=== PATIENT | female | born 1990 | race Caucasian/White ===

== ENCOUNTER 2018-06-06 02:41 | Inpatient (IN) ==
[~2018-06-06 02:41] MED LIST: Famotidine 20 MG/2 ML VIAL IVP PRN; Lidocaine 1% 20 ML MDV INFILT PRN; Metoclopramide 10 MG/2 ML VIAL IVP PRN; Naloxone 0.4 MG/ML INJ IVP PRN; Ondansetron 4 MG/2 ML VIAL IVP PRN; Oxytocin 20 units/ LR 1000 mL 20 UNIT/1,000 ML BAG IVC ONE; Ringers Solution, Lactated 1,000 ML ONE
[2018-06-06] MEDS ORDERED: Ringers Solution, Lactated 1,000 ML IVC SCH (02:45)
--- NOTE | 2018-06-06 02:52 | OB/GYN Procedure Note ---
Delivery - Delivery Date: 06/06/18 Provider: Jovanny Pino Intrapartum events: meconium Delivery induction: none Delivery monitor: external FHT, external uterine Anesthesia: local Quantitated Blood Loss: 300 - (s) Infant A Infant Delivery Date: 06/06/18 Infant Delivery Time: 02:21 Presentation: vertex Position: OA Route of delivery: Gender: Female Viability: Viable Pounds: 6 Ounces: 5 Weight Gram: 2.86 kg at 1 minute: 8 at 5 mins: 8 Shoulder Dystocia: not encountered Specimens collected: cord blood Cord: nuchal cord (x2), delivered through nuchal - Repair Episiotomy: none Laceration Description: Periurethral (right), Perineal - 1st Degree - Complications Delivery complications: none Delivery comments: Patient is a 27-year-old 1 para 0 approximately 36-2/7 weeks who was transferred from [facility] secondary to active labor. Patient presented to the emergency room by EMS with complaint of abdominal pains patient was 4 cm on admission they attempted to [facility] the patient the patient was so [id number] [facility] would not place her on the helicopter. In the process of weaning patient progressed to complete the ER physician artificially ruptured with thick meconium noted. They attempted to deliver her the patient refused to push. Patient's contractions spaced out and they felt it was unsafe for her to stay in the institution they did call was requesting transfer. We did inform them that we cannot exceptive since she is completely it would be up to the decision responsibility if they felt she may be transferred for an ambulance. He felt that she would not deliver and went ahead and transferred upon arrival patient was complete +2 requesting section she did not want to be in pain after long discussion with patient she finally decided to push and after approximately 10 minutes of pushing patient delivered a viable female infant in occiput anterior sensation and 0221. There was a nuchal cord 2 loose that was delivered through thick meconium was noted. The infant was bulb suctioned on the abdomen where the cord was clamped and cut and was handed off to waiting pediatric team. Cord blood was collected placenta was then delivered spontaneously with a three-vessel cord, OB Dr Pino, Anesthesia local, estimated blood loss 300 mL. Patient had a right periurethral laceration and a first-degree perineal laceration this was repaired with 3-0 Monocryl in a running locking stitch. Cervix and vagina was visualized intact uterus was explored there was no retained membranes or placental tissue noted. All needles and sponge counts were correct 3 she will be observed 2 hours before being taken floor - Disposition Mom disposition: stable in LDR [place] disposition: stable in LDR
--- NOTE | 2018-06-06 02:56 | OB/GYN History & Physical ---
Date of Encounter: 06/06/18 Time of Encounter: 02:48 Assessment and Plan (1) 36 weeks gestation of Current visit: Yes Status: Acute Admit for labor POC per consult with Dr Pino (2) Active labor Current visit: Yes Status: Acute Qualifiers: Fetus number: single or unspecified fetus Qualified Code(s): O60.10X0 - labor with delivery, unspecified trimester, not applicable or unspecified History of Present Illness Chief complaint: Active labor HPI: Ms. Finney is a 27 year old at 36 weeks and 2 days gestation who was transferred from [facility] secondary to active labor. Patient presented to the emergency room by EMS with complaint of abdominal pains patient was 4 cm on admission they attempted to [facility] the patient the patient was so [id number] [facility] would not place her on the helicopter. In the process of weaning patient progressed to complete the ER physician artificially ruptured with thick meconium noted. They attempted to deliver her the patient refused to push. Patient's contractions spaced out and they felt it was unsafe for her to stay in the institution they did call was requesting transfer. We did inform them that we cannot exceptive since she is completely it would be up to the decision responsibility if they felt she may be transferred for an ambulance. He felt that she would not deliver and went ahead and transferred upon arrival patient was complete +2 requesting section she did not want to be in pain after long discussion with patient she finally decided to push. She was seen for one exam today in the office with Mami Grijalva CNM. Her ultrasound yesterday showed a gestation of 36 w and 1 day with an EDC of 07/02/2018. She states she has a history of methamphetamine use and admitted to use of methamphetamine approximately 12 hours prior to going to [facility]. Labs: GBS unknown Hep B NR RPR NR HIV NR Rubella Immune Varicella Nonimmune Blood type A+ Past Med Surg Social Fam HX - Past Medical History Medical history: thyroid disease Additional medical history: taking vivtrol Psychiatric history: no psych history - Social History Smoking Status: Current every day smoker Smokeless Tobacco Status: No Alcohol use: none, heavy Drug use: opiates Obstetrical History - Pregnancies : 1 Para: 0 Term: 0 : 0 Ab's: 0 Livin Medications and Allergies Cephalexin [Keflex] 500 mg PO QID #28 capsule 02/21/17 [Rx] Ibuprofen [Motrin] 600 mg PO Q8HR PRN #20 tab 02/21/17 [Rx] Phenazopyridine HCl 200 mg PO TID #6 tablet 02/21/17 [Rx] Ondansetron ODT [Zofran ODT] 4 mg SL Q4HR #10 tab.rapdis 05/11/17 [Rx] Sulfamethoxazole/Trimeth DS [Bactrim DS] 1 each PO BID #6 tablet 05/14/17 [Rx] Allergy/AdvReac Type Severity Reaction Status Date / Time No Known Allergies Allergy Verified 05/11/17 06:06 Review of System OB All systems PM: reviewed and no additional remarkable complaints except as stated Exam - Constitutional Constitutional: well developed, well nourished, average body habitus, severe distress - HEENT HEENT: Normocephaly, Mucus Membranes Moist - Abdomen Abdomen: Present: gravid, non tender - Extremities Extremities exam: normal capillary refill, normal inspection, radial pulses palpable and symmetrical - Vulva Vulva: bilateral: normal - Vagina Vagina: Present: normal moisture - Cervix Dilation: 10 Effacement: 100 Station: +2 - Uterus Uterus exam: Present: normal size, normal contour - Comments Comments: FHTs 130's cat 1 tracing Contractions every 3-4 minutes Results All other labs normal. - VTE Reasons for not Prescribing Prophylaxis: Treatment not Indicated - Low risk for VTE
[2018-06-06] MEDS ORDERED: Oxytocin 20 units/ LR 1000 mL 20 UNIT/1,000 ML BAG IVC ONE ×2 (03:55→05:11)
[2018-06-06 04:04] LABS: Amphetamine Screen,Urine Positive ng/mL (Cutoff=1000); Barbiturate Screen,Urine Negative ng/mL (Cutoff=200); Benzodiazepines Screen,Urine Negative ng/mL (Cutoff=200); Cannabinoid Screen,Urine Negative ng/mL (Cutoff = 50); Cocaine Screen,Urine Negative ng/mL (Cutoff= 300); Opiate Screen,Urine Positive ng/mL (Cutoff=300); Phencyclidine Screen,Urine Negative ng/mL (Cutoff=25)
[2018-06-06 04:14] LABS: Basophils % 0.2 %; Hematocrit 26.1 % (35.3-44.9); Immature Granulocytes % 0.4 % (0-4); Lymphocytes # 1.8 K/mcL (0.6-4.6); Lymphocytes % 8.4 %; Mean Corpuscular Hemoglobin 27.1 pg (28.0-33.3); Mean Corpuscular Volume 87.3 fL (83.0-100.0); Mean Platelet Volume 11.7 fL (9.4-12.4); Monocytes # 1.2 K/mcL (0.0-1.3); Monocytes % 5.5 %; Neutrophils # 18.3 K/mcL (1.6-8.9); Platelet Count 361 K/mcL (140-400); Red Blood Count 2.99 M/mcL (3.82-4.97); Red Cell Distribution Width 14.3 % (11.5-14.5); Segmented Neutrophils % 85.5 %
[2018-06-06 04:16] LABS: Hemoglobin 8.1 g/dL (11.5-15.4)
[2018-06-06] MEDS ORDERED: Measles/Mumps/Rubella Vacc 0.5 ML VIAL SQ PRN (05:11)
[2018-06-06] MEDS ORDERED: Oxytocin 20 units/ LR 1000 mL 20 UNIT/1,000 ML BAG IVC SCH (05:11)
[2018-06-06] MEDS ORDERED: Benzocaine/Menthol 56 GM AEROSOL SPRAY TP PRN (05:11)
[2018-06-06] MEDS ORDERED: Acetaminophen 325 MG TABLET PO PRN (05:11)
[2018-06-06] MEDS ORDERED: Ibuprofen 600 MG TABLET PO PRN (05:11)
[2018-06-06] MEDS: Prenatal Vit/FA 1 EACH TABLET PO SCH (09:01)
[2018-06-06] MEDS ORDERED: Nicotine 21 MG PATCH.TD24 TD SCH (09:30)
[2018-06-06 16:29] LABS: Basophils % 0.2 %; Eosinophils # 0.1 K/mcL (0.0-0.6); Eosinophils % 0.4 %; Immature Granulocytes % 0.6 % (0-4); Lymphocytes # 4.3 K/mcL (0.6-4.6); Mean Corpuscular HGB Conc 33.3 g/dL (31.6-35.5); Mean Corpuscular Hemoglobin 28.2 pg (28.0-33.3); Mean Corpuscular Volume 84.5 fL (83.0-100.0); Mean Platelet Volume 11.5 fL (9.4-12.4); Monocytes % 5.8 %; Platelet Count 429 K/mcL (140-400); Red Blood Count 2.84 M/mcL (3.82-4.97); Red Cell Distribution Width 14.4 % (11.5-14.5)
[2018-06-07] MEDS: Prenatal Vit/FA 1 EACH TABLET PO SCH (07:52)
[2018-06-07 07:53] VITALS: BP 136/83
--- NOTE | 2018-06-07 08:23 | Discharge Summary ---
Date of Encounter: 06/07/18 Time of Encounter: 08:21 - Discharge Diagnosis (1) Status post vaginal delivery Priority: Primary Status: Acute Comments: Pt meeting milestones. She desires discharge home today. (2) Polysubstance abuse Priority: Secondary Status: Acute Comments: Pt has seen SW. Referral to CPS complete. (3) anemia Priority: Secondary Status: Acute Comments: Continue iron BID. Pt denies s/sx anemia. - Discharge Medications Prescriptions: Ibuprofen [Motrin] 600 mg PO Q6HR PRN #30 tablet PRN Reason: Cramping Docusate [Colace] 100 mg PO BID #60 capsule Ferrous Sulfate 325 mg PO BIDWM #60 tablet Home Medications: Benzocaine/Menthol [place] [Dermoplast [place]] 1 appl TP QID PRN aerosol 06/07/18 [Rx] Docusate [Colace] 100 mg PO BID #60 capsule 06/07/18 [Rx] Ferrous Sulfate 325 mg PO BIDWM #60 tablet 06/07/18 [Rx] Ibuprofen [Motrin] 600 mg PO Q6HR PRN #30 tablet 06/07/18 [Rx] Vit/FA 1 each PO DAILY tablet 06/07/18 [Rx] Allergies/Adverse Reactions: Allergy/AdvReac Type Severity Reaction Status Date / Time No Known Allergies Allergy Verified 05/11/17 06:06 Data Procedures and tests throughout hospitalization: Laboratory Tests 06/06/18 06/06/18 06/06/18 01:58 03:45 03:45 WBC 21.4 H D RBC 2.99 L Hgb 8.1 L D Hct 26.1 L MCV 87.3 MCH 27.1 L MCHC 31.0 L RDW 14.3 Plt Count 361 MPV 11.7 Immature Gran % 0.4 Seg Neutrophils % 85.5 Lymphocytes % 8.4 Monocytes % 5.5 Eosinophils % 0.0 Basophils % 0.2 Neutrophils # 18.3 H Lymphocytes # 1.8 Monocytes # 1.2 Eosinophils # 0.0 Basophils # 0.0 Urine Opiates Screen Positive H Ur Barbiturates Screen Negative Ur Phencyclidine Scrn Negative Ur Amphetamines Screen Positive H U Benzodiazepines Scrn Negative Urine Cocaine Screen Negative U Marijuana (THC) Screen Negative Ur Drug Screen Interp See Below Hep Bs Antigen Nonreactive 06/06/18 16:06 WBC 16.5 H RBC 2.84 L Hgb 8.0 L Hct 24.0 L MCV 84.5 MCH 28.2 MCHC 33.3 RDW 14.4 Plt Count 429 H MPV 11.5 Immature Gran % 0.6 Seg Neutrophils % 67.0 Lymphocytes % 26.0 Monocytes % 5.8 Eosinophils % 0.4 Basophils % 0.2 Neutrophils # 11.0 H Lymphocytes # 4.3 Monocytes # 1.0 Eosinophils # 0.1 Basophils # 0.0 Urine Opiates Screen Ur Barbiturates Screen Ur Phencyclidine Scrn Ur Amphetamines Screen U Benzodiazepines Scrn Urine Cocaine Screen U Marijuana (THC) Screen Ur Drug Screen Interp Hep Bs Antigen Labs on day of discharge: Labs from last 24 hours 06/06/18 16:06 WBC 16.5 H RBC 2.84 L Hgb 8.0 L Hct 24.0 L MCV 84.5 MCH 28.2 MCHC 33.3 RDW 14.4 Plt Count 429 H MPV 11.5 Immature Gran % 0.6 Seg Neutrophils % 67.0 Lymphocytes % 26.0 Monocytes % 5.8 Eosinophils % 0.4 Basophils % 0.2 Neutrophils # 11.0 H Lymphocytes # 4.3 Monocytes # 1.0 Eosinophils # 0.1 Basophils # 0.0 - Impressions ITS Impressions Elbow X-Ray 06/06/18 16:36 IMPRESSION: No acute osseous abnormality of the left elbow. D/ / Kirk Ye MD / Kirk Ye MD Interpreting Provider: Kirk Ye MD Date of admission: 06/06/18 02:41 Primary care physician: PCP NONE Consults: 06/06/18 02:42 Consult to [facility] ([facility]) [CONS] Routine Reason For Exam: Reason for SW Consult: Late care - admission to meth use today prior to onset of labor 06/06/18 05:11 Consult to [facility] [employer] [CONS] Routine Comment: Vaginal delivery, consult needed Discharging clinician: Camille Madsen Anticipated date of discharge: 06/07/18 - Patient Status Disposition: Home, Self-Care Condition: Good Functional capacity at discharge: independent ambulation Overall status at discharge: patient is progressing back to baseline - Discharge Instructions Follow Up With: NONE,PCP [Primary Care Provider] - Svitlana Oconnell CNM [Advanced Practice Nurse] - - Diet and Activity Activity: increase activity as tolerated Diet: regular diet Hospital Course Reason for admission: active labor Delivery: Episiotomy: none Laceration: 1st degree, other (periurethral) Other procedures: none complications: none Discharge diagnosis: IUP at term delivered [place] baby: female Hospital course: - Delivery Date: 06/06/18 Provider: Jovanny Pino Intrapartum events: meconium Delivery induction: none Delivery monitor: external FHT, external uterine Anesthesia: local Quantitated Blood Loss: 300 - Infant (s) Infant A Delivery Date: 06/06/18 Delivery Time: 02:21 Presentation: vertex Position: OA Route of delivery: Gender: Female Viability: Viable Pounds: 6 Ounces: 5 Weight Gram: 2.86 kg at 1 minute: 8 at 5 mins: 8 Shoulder Dystocia: not encountered Specimens collected: cord blood Cord: nuchal cord (x2), delivered through nuchal - Repair Episiotomy: none Laceration Description: Periurethral (right), Perineal - 1st Degree - Complications Delivery complications: none - Disposition Mom disposition: home PPD#1 [place] disposition: in nursery for SHAD observation Time spent discussing smoking cessation with patient: 3 to 10 minutes Time Attestation: Total time spent providing and/or coordinating discharge services: Time Spent: Less than 30 minutes Exam - Constitutional Vitals: Temp Pulse Resp BP Pulse Ox 99.0 F 97 16 136/83 98 06/07/18 07:15 06/07/18 07:15 06/07/18 07:15 06/07/18 07:15 06/06/18 20:05 General appearance IM: A&O X 3 - Respiratory Respiratory exam: Present: CTAB - Cardiovascular Cardiovascular exam IM: Present: RRR - GI/Abdominal GI/Abdominal exam IM: soft - External exam: normal external exam Uterine Tone: Firm Uterus Position: 2 Fingers Below Umbilicus - Extremities Exam Extremities exam IM: Present: normal inspection - Neurological Exam Neurological exam: normal gait, oriented X3 - Psychiatric Additional comments: Pt reports great mood, She appears euphoric this am.
[2018-06-07 08:29] LABS: Basophils # 0.1 K/mcL (0.0-0.2); Basophils % 0.4 %; Eosinophils # 0.2 K/mcL (0.0-0.6); Eosinophils % 1.1 %; Hematocrit 24.2 % (35.3-44.9); Hemoglobin 7.7 g/dL (11.5-15.4); Immature Granulocytes % 0.8 % (0-4); Lymphocytes # 3.4 K/mcL (0.6-4.6); Lymphocytes % 24.1 %; Mean Corpuscular HGB Conc 31.8 g/dL (31.6-35.5); Mean Corpuscular Hemoglobin 27.3 pg (28.0-33.3); Mean Corpuscular Volume 85.8 fL (83.0-100.0); Mean Platelet Volume 11.4 fL (9.4-12.4); Monocytes # 0.8 K/mcL (0.0-1.3); Monocytes % 5.7 %; Neutrophils # 9.6 K/mcL (1.6-8.9); Platelet Count 399 K/mcL (140-400); Red Blood Count 2.82 M/mcL (3.82-4.97); Red Cell Distribution Width 14.6 % (11.5-14.5); Segmented Neutrophils % 67.9 %
[2018-06-07] MEDS ORDERED: Etonogestrel 68 MG IMPLANT IL ONE (08:32)
== END 2018-06-07 13:10 | disposition home or self-care (01) | DRG 560 ==
LOC: 1NENULAB → 1NENUOBS 05:10
PROVIDERS: ADMIT Advanced Practice Midwife; ATTEND Advanced Practice Midwife